=== PATIENT | female | born 1985 | race Caucasian/White ===

== ENCOUNTER 2017-06-16 16:39 | Observation (INO) | payer OTHER ==
[~2017-06-16] VITALS: Ht 160 cm; Wt 98.9 kg
[2017-06-16] MEDS ORDERED: PREN-380 PO (17:19)
[2017-06-16 17:30] VITALS: BP 123/78
[2017-06-16] MEDS ORDERED: INFLUENZA VIRUS VACCINE QUAD 0.5 ML SYR IMVAC SCH (22:00)
== END 2017-06-16 18:58 | disposition home or self-care (01) ==
LOC: MLD 16:39
PROVIDERS: ADMIT Obstetrics & Gynecology; ATTEND Obstetrics & Gynecology
DX: O26.893 Other specified pregnancy related conditions, third trimester (principal); R10.9 Unspecified abdominal pain; Z3A.38 38 weeks gestation of pregnancy
CPT/HCPCS: 76815; G0378; Q0092